=== PATIENT | male | born 1955 | race Caucasian/White ===

== ENCOUNTER 2016-10-21 14:22 | Outpatient (CLI) | payer MEDICARE ==
[2016-10-21 14:57] LABS: Anion Gap 13 mmol/L (10-20); BUN (Urea Nitrogen) 13 mg/dL (8.4-25.7); Calc. Creatinine Clearance 0 mL/min (70-130); Calcium 9.2 mg/dL (7.8-10.44); Carbon Dioxide 27 mmol/L (23-31); Chloride 107 mmol/L (98-107); Estimated GFR-MDRD 66; Hemoglobin A1c 6.3 % (4.0-6.0)
== END 2016-10-21 14:23 | disposition home or self-care (01) ==
LOC: BURLAB 14:22
PROVIDERS: ATTEND Family Medicine
DX: E11.9 Type 2 diabetes mellitus without complications (principal); N40.1 Benign prostatic hyperplasia with lower urinary tract symptoms; I25.10 Atherosclerotic heart disease of native coronary artery without angina pectoris
CPT/HCPCS: 36415; 80048; 83036; 84439; 84443; G0103

== ENCOUNTER 2017-06-02 11:13 | Outpatient (CLI) | payer MEDICARE ==
--- NOTE | 2017-06-02 14:15 | RAD ---
RIGHT FOOT 3 VIEWS: Date: 06/02/17 FINDINGS: No fracture or periosteal reaction seen. There is some degenerative change in the first MTP joint. M ild bunion formation on the medial aspect of the first metatarsal head is noted. Some bony flecks in volving the sesamoid bones of the first MTP joint could be from old trauma. Regarding the fifth metatarsal head, I see no acute change. There may be the tiniest beginnings of a bunion here laterally, but it is not prominent. The tarsal bones are unremarkable, except for a alex caneal spur. IMPRESSION: Chronic changes as noted above. POS: [facility]
== END 2017-06-02 11:14 | disposition home or self-care (01) ==
LOC: BURRAD 11:13
PROVIDERS: ATTEND Family Medicine
DX: M79.671 Pain in right foot (principal); M19.071 Primary osteoarthritis, right ankle and foot

== ENCOUNTER 2018-05-03 13:43 | Outpatient (CLI) | payer MEDICARE ==
--- NOTE | 2018-05-03 22:16 | RAD ---
LEFT SHOULDER THREE VIEWS: 05/03/2018 FINDINGS: A calcification is seen just lateral to the greater tubercle of the humerus, suggesting calcific tend initis. No fracture or dislocation is present. The AC joint is not widened. IMPRESSION: Presumed calcific tendinitis. POS: HOME
== END 2018-05-03 13:44 | disposition home or self-care (01) ==
LOC: BURRAD 13:43
PROVIDERS: ATTEND Physician Assistant
DX: M25.512 Pain in left shoulder (principal)

== ENCOUNTER 2019-08-01 11:57 | Outpatient (CLI) | payer MEDICARE ==
--- NOTE | 2019-08-01 13:06 | RAD ---
Exam: XR Hip Lt 2-3 View HISTORY: Left hip pain after injury one week ago. COMPARISON: None FINDINGS: There is mild left hip osteoarthritis. No acute fracture, dislocation, or other acute osseous abnormality is identified. IMPRESSION: No acute osseous abnormality is identified.
== END 2019-08-01 11:58 | disposition home or self-care (01) ==
LOC: BURRAD 11:57
PROVIDERS: ATTEND Physician Assistant
DX: M25.552 Pain in left hip (principal)

== ENCOUNTER 2020-03-07 17:06 | Outpatient (CLI) | payer MEDICARE ==
--- NOTE | 2020-03-07 18:38 | RAD ---
RIGHT FOOT FOUR VIEWS: 03/07/20 Comparison is made with the 06/02/17 study. Hallux valgus is present as before, though the inner aspect of the first metatarsal head has become a little more prominent and there is a little more angulation at the first MTP joint. No fracture or periosteal reaction was seen. A small calcaneal spur was seen which is approximately the same as befo re. IMPRESSION: Old changes but no acute findings. POS: HOME
== END 2020-03-07 17:07 | disposition home or self-care (01) ==
LOC: BURRAD 17:06
PROVIDERS: ATTEND Physician Assistant
DX: M79.671 Pain in right foot (principal)

== ENCOUNTER 2022-07-28 10:50 | Outpatient (CLI) | payer MEDICARE | END 2022-07-28 10:51 | disposition home or self-care (01) | LOC: BURRAD 10:50 | PROVIDERS: ATTEND Physician Assistant | DX: Z87.09 Personal history of other diseases of the respiratory system (principal) | CPT/HCPCS: 71046 ==

== ENCOUNTER 2022-12-05 13:17 | Emergency (ER) | payer MEDICARE | END 2022-12-05 14:16 | disposition home or self-care (01) | LOC: BURERS 13:17 | DX: S93.401A Sprain of unspecified ligament of right ankle, initial encounter (principal); E11.9 Type 2 diabetes mellitus without complications; I25.2 Old myocardial infarction; M19.90 Unspecified osteoarthritis, unspecified site; X50.1XXA Overexertion from prolonged static or awkward postures, initial encounter; Z87.891 Personal history of nicotine dependence; Z79.82 Long term (current) use of aspirin; Z79.899 Other long term (current) drug therapy ==

== ENCOUNTER 2023-06-03 08:20 | Outpatient (CLI) | payer MEDICARE | END 2023-06-03 08:21 | disposition home or self-care (01) | LOC: BURCT 08:20 | PROVIDERS: ATTEND Physician Assistant | DX: M54.41 Lumbago with sciatica, right side (principal); M47.816 Spondylosis without myelopathy or radiculopathy, lumbar region | CPT/HCPCS: 72131 ==